=== PATIENT | male | born 1950 | race Caucasian/White ===

== ENCOUNTER 2019-11-21 16:29 | Outpatient (CLI) | payer MEDICARE, OTHER, SELFPAY ==
--- NOTE | ~2019-11-21 | US_ITS ---
EXAMINATION: US venous doppler LE RT DATE: 11/21/2019 16:58 INDICATION: Right lower limb pain and numbness TECHNIQUE: Grayscale ultrasound images without and with compression and Doppler ultrasound images of the right lower extremity veins were obtained. COMPARISON: None. FINDINGS: The visualized portions of right common femoral vein, profunda (deep) femoral vein, femoral vein, pop liteal vein, peroneal trunk, posterior tibial veins, peroneal veins, gastrocnemius vein and greater s aphenous vein outflow are patent. IMPRESSION: 1. No deep venous thrombosis in the right lower limb. Reviewed, dictated and finalized at location A. MESSENGER
== END 2019-11-21 16:30 | disposition home or self-care (01) ==
LOC: ANHIMG 16:36
PROVIDERS: PCP Nurse Practitioner Family; Visit Provider Nurse Practitioner Family
DX: M79.604 Pain in right leg (principal)
CPT/HCPCS: 93971

== ENCOUNTER 2020-07-28 18:18 | Emergency (ER) | payer MEDICARE, OTHER, SELFPAY ==
--- NOTE | ~2020-07-28 | XR_ITS ---
EXAMINATION: XR wrist LT min 3V EXAM DATE: 07/28/2020 19:55 INDICATION: Initial encounter following injury, with pain of the left wrist. TECHNIQUE: Left wrist frontal, frontal with ulnar deviation, oblique and lateral projections obtained and reviewed. There is no prior study for comparison. FINDINGS: Left wrist scapholunate joint space is maintained. Small sliver-like ossification along th e volar aspect of the wrist, possible fracture of the radius distally, however no acute fracture line is specifically identified. This finding has been indicated, marked on the examination for review, c linical correlation. Clinically correlate. IMPRESSION: Indeterminate ossification volar aspect of the radiocarpal joint. Reviewed, dictated and finalized at location A.
[2020-07-28 19:29] VITALS: BP 134/57; PULSE 58; RESP 18; TEMP 36.4; O2SAT 100
--- NOTE | 2020-07-28 20:40 | ED.GENADULT ---
HPI - General Adult General Chief complaint: Extremity Injury, Upper <Moises Odom PA-C - Last Filed: 07/28/20 20:42> Stated complaint: left wrist injury <Moises Odom PA-C - Last Filed: 07/28/20 20:42> Time Seen by Provider: 07/28/20 20:32 <Moises Odom PA-C - Last Filed: 07/28/20 20:42> Source: patient and family <BERNARDO Gonzalez Last Filed: 07/28/20 20:42> Mode of arrival: ambulatory <Moises Odom PA-C - Last Filed: 07/28/20 20:42> Limitations: no limitations <BERNARDO Gonzalez Last Filed: 07/28/20 20:42> History of Present Illness HPI narrative: Patient is a 64-year-old male who presents with left wrist pain after falling onto an outstretched left wrist patient presents noting swelling and tenderness of the wrist joint worse with activity and movement patient denies other injuries or complaints or similar occurrence in the past <Moises Odom PA-C - Last Filed: 07/28/20 20:42> Related Data Home medications: Home Medications Medication Instructions Recorded Confirmed tramadol 50 mg tablet 50 mg PO Q6H PRN 11/13/19 cyclobenzaprine mg 07/28/20 hydrocodone-acetaminophen 07/28/20 levothyroxine 07/28/20 lisinopril 07/28/20 rosuvastatin mg 07/28/20 zolpidem 07/28/20 <Moises Odom PA-C - Last Filed: 07/28/20 20:42> Allergies/adverse reactions: Allergies Allergy/AdvReac Type Severity Reaction Status Date / Time No Known Allergies Allergy Verified 07/28/20 19:29 <Moises Odom PA-C - Last Filed: 07/28/20 20:42> Review of Systems Review of Systems: All systems reviewed & are unremarkable except as noted in HPI and below <Moises Odom PA-C - Last Filed: 07/28/20 20:42> PMFSH Past Medical History Medical History: Medical History (Updated 07/28/20 @ 20:42 by Moises Odom PA-C) Hypertension Hypothyroidism <BERNARDO Gonzalez Last Filed: 07/28/20 20:42> Family History Family History: Family History (Updated 06/12/14 @ 07:13 by DOCTOR UNKNOWN) Father Family history of alcoholism Mother Family history of alcoholism <Moises Odom PA-C - Last Filed: 07/28/20 20:42> Social History Social History: Social History Smoking status: Never smoker Alcohol intake: current Gender identity (if verbalized by the patient): Male <Moises Odom PA-C - Last Filed: 07/28/20 20:42> Exam Narrative: Exam Narrative: GENERAL: Well-appearing, well-nourished, and in no acute distress. HEAD: Normocephalic, atraumatic. EYES: PERRLA and EOMI. ENT: Nares clear, no rhinorrhea or epistaxis. Mucous membranes moist. EXTREMITIES: Slight swelling and tenderness along the distal radius left wrist SKIN: Warm, dry, no rash. NEURO: No focal deficits. Alert and oriented x3. Neurovascularly intact PSYCH: Normal mood and affect. <Moises Odom PA-C - Last Filed: 07/28/20 20:42> Course Course Emergency Course: Patient will be splinted and referred to orthopedics given the tenderness in the snuffbox was placed in a fabricated OCL in the emergency department <Moises Odom PA-C - Last Filed: 07/28/20 20:42> Vital Signs Vital signs: Vital Signs Temperature 36.4 C L 07/28/20 19:29 Pulse Rate 58 L 07/28/20 19:29 Respiratory Rate 18 07/28/20 19:29 Blood Pressure 134/57 L 07/28/20 19:29 Pulse Oximetry 100 07/28/20 19:29 Temperature 36.4 C L 07/28/20 19:29 Pulse Rate 58 L 07/28/20 19:29 Respiratory Rate 18 07/28/20 19:29 Blood Pressure 134/57 L 07/28/20 19:29 Pulse Oximetry 100 07/28/20 19:29 <Moises Odom PA-C - Last Filed: 07/28/20 20:42> Vital Signs Temperature 36.4 C L 07/28/20 19:29 Pulse Rate 58 L 07/28/20 19:29 Respiratory Rate 18 07/28/20 19:29 Blood Pressure 134/57 L 07/28/20 19:29 Pulse Oximetry 100 07/28/20 19:29 Temperatur
[2020-07-28 21:27] VITALS: BP 139/75; PULSE 59; RESP 18; O2SAT 99
--- NOTE | 2020-07-28 21:27 | PC.NURSE ---
thumb spica and sling placed by [facility] and approved by dr. alexis.
== END 2020-07-28 21:29 | disposition home or self-care (01) ==
LOC: ANHED 20:48
PROVIDERS: Emergency Provider Emergency Medicine; PCP Nurse Practitioner Family
DX: S69.92XA Unspecified injury of left wrist, hand and finger(s), initial encounter (principal); W19.XXXA Unspecified fall, initial encounter; I10 Essential (primary) hypertension; E03.9 Hypothyroidism, unspecified
CPT/HCPCS: 29125; 73110; 99283; A4565

== ENCOUNTER 2022-09-24 15:05 | Emergency (ER) | payer MEDICARE, OTHER, SELFPAY ==
--- NOTE | 2022-09-24 16:03 | ED.URI ---
HPI - URI/Sore Throat General Chief Complaint: Upper Respiratory Infection Stated Complaint: chest tightness,cough,shortness of breath Time Seen by Provider: 09/24/22 16:47 Source: patient and RN notes reviewed Mode of arrival: ambulatory Limitations: no limitations History of Present Illness HPI Narrative: 72-year-old male presents with concern for 3 week history of cough. Reports he had influenza like symptoms beginning of his illness, most of the symptoms have resolved, however he still has persistent cough, upper back chest pain with coughing, fatigue, nausea, chills. Reports he has been trying Mucinex with little relief. He reports symptoms are worse when lies down MD elicited complaint: cough Related Data Home Medications Medication Instructions Recorded Confirmed levothyroxine 50 mcg tablet 50 mcg DAILY 09/24/22 09/24/22 lisinopril 10 mg tablet 10 mg DAILY 09/24/22 09/24/22 meloxicam 15 mg tablet 15 mg DAILY 09/24/22 09/24/22 Allergies Allergy/AdvReac Type Severity Reaction Status Date / Time No Known Allergies Allergy Verified 09/24/22 16:37 Review of Systems Review of Systems: CONSTITUTIONAL: Denies malaise, chills, sweats, or fever. EYES: Denies visual changes, redness, or discharge. ENT: Reports rhinorrhea, congestion, sinus pain, otalgia and sore throat. CARDIOVASCULAR: Denies chest pain, palpitations, or edema. RESPIRATORY: Reports cough. Denies dyspnea. GASTROINTESTINAL: Denies abdominal pain, nausea, vomiting, diarrhea SKIN: Denies rash or itching. MUSCULOSKELETAL: Denies myalgia. NEUROLOGIC: Denies headache. All systems reviewed & are unremarkable except as noted in HPI and below PMFSH Past Medical History Medical History (Updated 09/24/22 @ 17:00 by Idalia Ansari NP) Hypertension Hypothyroidism Family History Family History (Updated 06/12/14 @ 07:13 by DOCTOR UNKNOWN) Father Family history of alcoholism Mother Family history of alcoholism Social History Social History Smoking status: Never smoker Alcohol intake: current Gender identity (if verbalized by the patient): Male Comments At time of signature, agree with nursing past medical, surgical, social and family history. There is no relevant family history pertinent to the presenting complaint Exam Narrative: GENERAL: Nontoxic-appearing and in no acute distress. HEAD: Normocephalic EYES: PERRLA, conjunctivae clear ENT: Nares clear Mucous membranes moist. TM pearly stokes with dull light reflex bilaterally; no tragal tenderness. Oropharynx not erythematous without lesions. Tonsils not enlarged and without exudate, no drooling, no hoarseness, no trismus, uvula midline. NECK: Supple. No lymphadenopathy CHEST: Scattered expiratory wheeze and rhonchi, diminished in the bases. No rales, or stridor. No respiratory distress, speaks in full sentences. HEART: Regular rate and rhythm. No murmur heard. SKIN: Warm, dry, no rash. NEURO: Alert and oriented x3. PSYCH: Normal mood and affect Course Course Emergency Course: Explained to patient our inability to do an x-ray today at this clinic, offered transfer to another clinic for x-ray versus treating patient based on exam. Patient would rather be treated based on exam Patient is aware of diagnosis, understands and agrees to treatment plan. Anticipatory guidance given. Patient agrees to follow-up as directed and is aware of reasons to seek care at the emergency department. Portions of this record may have been created with voice recognition software Level of Care: Express Care Visit Vital Signs Vital signs: Vital Signs Temperature 98.6 F 09/24/22 16:28 Pulse Rate 78 09/24/22 16:28 Respiratory Rate 18 09/24/22 16:28 Blood Pressure 128/66 09/24/22 16:28 Pulse Oximetry 96 09/24/22 16:28 Oxygen Delivery Room Air 09/24/22 16:28 Temperature 98.6 F 09/24/22 16:28 Pulse Rate 78 09/24/22 16:28
[2022-09-24 16:28] VITALS: BP 128/66; PULSE 78; RESP 18; TEMP 37; O2SAT 96
== END 2022-09-24 17:03 | disposition home or self-care (01) ==
PROVIDERS: Emergency Provider Nurse Practitioner; PCP Nurse Practitioner Family
DX: R05.9 Cough, unspecified (principal); R06.89 Other abnormalities of breathing; I10 Essential (primary) hypertension; E03.9 Hypothyroidism, unspecified
CPT/HCPCS: 99213; G0463

== ENCOUNTER → 2022-10-13 11:16 | Outpatient (CLI) | payer MEDICARE, OTHER, SELFPAY ==
--- NOTE | ~2022-10-13 | CT_ITS ---
CT Scan of the Chest without Contrast: Clinical Indication: Abnormal lung field finding Technique: Contiguous sections were acquired throughout the chest without intravenous contrast. Dose reduction technique was used on this scan by utilizing automated exposure control and iterative recon struction technique. The dose-length product (DLP) was 683.45 mGy-cm. Findings: There is no evidence of any significant mediastinal, hilar or axillary lymphadenopathy. The mediastin al soft tissues appear normal. There is no evidence of pleural or pericardial effusion. There is probable linear scarring at the right middle lobe and left lung base. 4 mm right upper lobe pulmonary nodule noted (axial image 75). 3 mm left basilar pulmonary nodule present (axial image 100) . 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 Impression: Subcentimeter pulmonary nodules, as noted above. According to Fleischner Society criteria, for a low- risk patient, no further follow-up required. For a high-risk patient, consider 12 month follow-up CT. Bibasilar linear scarring or atelectasis. Reviewed, dictated and finalized at location . GRINDER Impression: Subcentimeter pulmonary nodules, as noted above. According to Fleischner Societ y criteria, for a low-risk patient, no further follow-up required. For a high-r isk patient, consider 12 month follow-up CT. Bibasilar linear scarring or atelectasis.
== END ==
PROVIDERS: PCP Nurse Practitioner Family; Visit Provider Nurse Practitioner Family
DX: R91.8 Other nonspecific abnormal finding of lung field (principal)
CPT/HCPCS: 71250